=== PATIENT | female | born 1950 | race Caucasian/White ===

== ENCOUNTER 2017-02-19 09:55 | Day surgery (SDC) | payer BC ==
[2017-02-17 10:39] LABS: HEMATOCRIT 41.1 % (36.0-48.0); HEMOGLOBIN 13.3 g/dL (12.0-16.0)
[2017-02-17 10:56] LABS: A/G RATIO 1.5 (0.7-1.9); ALBUMIN 4.1 G/DL (3.5-5.0); ALKALINE PHOSPHATASE 80 U/L (45-117); BUN (BLOOD UREA NITROGEN) 11 MG/DL (6-23); CALCIUM, SERUM 9.5 MG/DL (8.5-10.4); CHLORIDE, SERUM 106 MMOL/L (96-112); CO2 (CARBON DIOXIDE) 31 MMOL/L (24-34); CREATININE 0.78 MG/DL (0.55-1.02); GFR AFRICAN AMERICAN 93 ML/MIN (>=60); GFR NON AFRICAN AMERICAN 80 ML/MIN (>=60); GLOBULIN 2.7 G/DL (2.5-4.1); GLUCOSE, SERUM 122 MG/DL (60-99); SGOT(AST) 15 U/L (5-40); SGPT(ALT) 24 U/L (5-65); SODIUM, SERUM 145 MMOL/L (135-148); TOTAL BILIRUBIN 0.5 MG/DL (0-1.2); TOTAL PROTEIN 6.8 G/DL (6.0-8.5)
--- NOTE | ~2017-02-19 | OP ---
Record Of Operation [facility] [address] [place]. [address] NAME: SHEILA MOSER : 54 STATUS : [facility]#: [id number] AGE: 66 ADM/REG DATE : 02/19/17 MR#: [id number] REPORT SERV DATE: 02/22/17 DICTATED BY: ELLEN MARS JR. 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 PREOPERATIVE DIAGNOSIS: Carcinoma of the breast with need of venous access for chemotherapy. POSTOPERATIVE DIAGNOSIS: Carcinoma of the breast with need of venous access for chemotherapy. SURGERY PERFORMED: Insertion of PowerPort venous port. DESCRIPTION OF PROCEDURE: With anesthesia support, the patient was prepped and draped in supine position in usual sterile fashion. 1% Xylocaine was used to anesthetize the infraclavicular region on the left side. The needle and wire were inserted into the vein without difficulty and documented to be in correct position on fluoroscopy. The area was anesthetized, and the incision made. The catheter was inserted through a Tear-Away introducer and documented to be in correct position. This port system was assembled, aspirated, and flushed and secured to the chest wall with Prolene. The wound was irrigated and hemostasis obtained. Final fluoroscopy revealed correct positioning of the catheter tip in the junction of the vena cava in the top of the atrium. No kinking noted. Good blood return and flushing were evident. The wound was irrigated and hemostasis obtained. The wound was closed with three layers of Monocryl. The patient tolerated the procedure well without complications. ESTIMATED BLOOD LOSS: Negligible. SPONGE COUNT: Correct. MR/MANNY Ellen Mars Jr., M.D. / [id number] CC: Mark Anthony Diggs Jr., LOREN C Benjamin R Nadeau, MD
[~2017-02-19 09:55] MED LIST: ASAB PO; FISH-EPA1000 MG PO; FLONASE NAS; GLUCPH PO; INSTRINSI PO; LIPITOR40 PO; LOTENSIN HCT1 TA2 PO; MIRALAX POWDER1 PKT PO; NIACIN 500 PO; PRILOSEC40 MG PO; PROBIOTIC PO
== END 2017-02-19 17:06 | disposition home or self-care (01) ==
LOC: SDC 09:55
PROVIDERS: Surgery Surgical Oncology
PROC: 05H633Z Insertion of Infusion Device into Left Subclavian Vein, Percutaneous Approach (ICD-10-PCS; 2017-02-19)
PROC: B517YZA Fluoroscopy of Left Subclavian Vein using Other Contrast, Guidance (ICD-10-PCS; 2017-02-19)
PROC: 0JH60XZ Insertion of Tunneled Vascular Access Device into Chest Subcutaneous Tissue and Fascia, Open Approach (ICD-10-PCS; principal; 2017-02-19 12:45)
DX: C50.911 Malignant neoplasm of unspecified site of right female breast (principal); I10 Essential (primary) hypertension; E11.8 Type 2 diabetes mellitus with unspecified complications; Z90.49 Acquired absence of other specified parts of digestive tract; Z79.82 Long term (current) use of aspirin; Z79.899 Other long term (current) drug therapy; Z98.51 Tubal ligation status; Z98.890 Other specified postprocedural states
CPT/HCPCS: 71010; 71020; 77001; 80053; 82962; 85014; 85018; 93005; C1751; J0690; J2250; J3010